=== PATIENT | female | born 1995 | race Caucasian/White ===

== ENCOUNTER 2016-03-26 07:36 | Emergency (ER) | payer OTHER ==
[2016-03-26 07:57] VITALS: TEMP 97.6; O2SAT 98
--- NOTE | 2016-03-26 08:10 | ED.PDOC ---
History of Present Illness - General Chief Complaint: Respiratory Problem Stated Complaint: sore throat Time Seen by Provider: 03/26/16 08:01 Source: patient Exam Limitations: no limitations - History of Present Illness Initial Comments: Patient presents with several days of a sore throat and subjective fever. She also has had a cough productive of green sputum. She went to a clinic yesterday and got azithromycin. She has taken two tablets. She says that her sore throat has not gone away , yet. She wants something that works more quickly. No other complaints. Timing/Duration: other - "several days" Severity: moderate Improving Factors: nothing Worsening Factors: other - swallowing Associated Symptoms: cough Allergies/Adverse Reactions: Allergies Promethazine [From Phenergan] Adverse Reaction (Verified 03/26/16 07:48) Other Skin reaction following IM injection Home Medications: Ambulatory Orders Acetaminophen [Tylenol] 1 mg PO PRN 08/14/13 Vit W/ Ferrous Fumara [Pnv Plus Multivi] 1 tab PO DAILY diphenhydrAMINE HCL [Benadryl] 25 mg PO PRN 08/14/13 HYDROcodone 5MG/APAP 325MG [[place] 5/325] 1 ea PO Q8H #8 tab 09/19/13 Ibuprofen [Motrin Tab] 600 mg PO Q8H #20 tab 09/19/13 Vit W/ Ferrous Fumara [Vitafol-Ob] 1 tab PO DAILY #100 tab 09/19/13 Naproxen [Naprosyn] 500 mg PO BID PRN #30 tab 11/20/15 Review of Systems - Review of Systems Constitutional: States: see HPI EENTM: States: see HPI Respiratory: States: see HPI Cardiology: States: no symptoms reported Gastrointestinal/Abdominal: States: no symptoms reported Genitourinary: States: no symptoms reported Musculoskeletal: States: no symptoms reported Skin: States: no symptoms reported Neurological: States: no symptoms reported Endocrine: States: no symptoms reported Hematologic/Lymphatic: States: no symptoms reported Past Medical History (General) - Patient Medical History Hx Hypertension: No Hx Diabetes: No Hx Renal Disease: No Hx Cancer: No Hx Hepatitis C: No Hx MRSA: No Surgical History: other - Vaccination History Hx Tetanus, Diphtheria Vaccination: No Hx Influenza Vaccination: No Hx Pneumococcal Vaccination: No - Social History Hx Tobacco Use: Yes Hx Substance Use: No - Female History Hx Last Menstrual Period: 01/14/13 Patient : No Expected Date of Delivery:: 10/21/13 Family Medical History - Family History Maternal Grandparents Hx Family Cancer: Yes Mother Hx Family;Other: does not wish to answer questions Physical Exam - Physical Exam General Appearance: Alert Eye Exam: bilateral normal Ears, Nose, Throat: pharyngeal erythema, tonsillar exudate Neck: non-tender, lymphadenopathy (R), lymphadenopathy (L) Respiratory: other - expiratory wheezes on left upper lobe Cardiovascular/Chest: regular rate, rhythm Gastrointestinal/Abdominal: normal bowel sounds, non tender, soft Extremity: normal inspection Progress - Progress Progress: 03/26/16 08:28 Rapid strep positive. Patient received Bicillin LA 1.2 million units IM x one Departure - Departure Clinical Impression: Streptococcal pharyngitis Disposition: Discharge to Home or Self Care Condition: Good Departure Forms: ED Discharge - Pt. Copy, Patient Portal Self Enrollment Activity: increase activity as tolerated Home Medications: Ambulatory Orders Acetaminophen [Tylenol] 1 mg PO PRN 08/14/13 Vit W/ Ferrous Fumara [Pnv Plus Multivi] 1 tab PO DAILY diphenhydrAMINE HCL [Benadryl] 25 mg PO PRN 08/14/13 HYDROcodone 5MG/APAP 325MG [[place] 5/325] 1 ea PO Q8H #8 tab 09/19/13 Ibuprofen [Motrin Tab] 600 mg PO Q8H #20 tab 09/19/13 Vit W/ Ferrous Fumara [Vitafol-Ob] 1 tab PO DAILY #100 tab 09/19/13 Naproxen [Naprosyn] 500 mg PO BID PRN #30 tab 11/20/15 Additional Instructions: Increase fluids. May take over the counter cough and cold medications as directed. Tylenol for pain or fever control.
[2016-03-26] MEDS: PENICILLIN BENZATHINE 1.2 MU 1.2 MU/2 ML SYG IM ONE (08:49)
[2016-03-26 09:08] VITALS: BP 122/74
== END 2016-03-26 09:08 | disposition home or self-care (01) ==
LOC: ER 07:36
DX: J02.0 Streptococcal pharyngitis (principal); Z87.891 Personal history of nicotine dependence; Z88.8 Allergy status to other drugs, medicaments and biological substances; Z79.899 Other long term (current) drug therapy
CPT/HCPCS: 86403; 87502; 87651; J0561

== ENCOUNTER 2016-04-26 11:25 | Emergency (ER) | payer OTHER ==
[2016-04-26 11:49] VITALS: BP 137/75; TEMP 97.4; O2SAT 99
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
--- NOTE | 2016-04-26 12:55 | CT ---
PROCEDURE: Head HISTORY: Blacked out/denies fall Indication: Syncopal Comparison: None Technique: CT of the head was done without intravenous contrast was done in the orthogonal planes. FINDINGS: There is no intracranial hemorrhage, midline shift mass effect or acute focal infarct. If clinical concern exists regarding an acute ischemic/vascular pathology being responsible for patient's symptomatology, an MRI of the brain is more sensitive than the current study, in ruling out such a possibility. There is good oneill/white matter differentiation. The ventricular system is normal. The mastoid air cells are unremarkable . The paranasal sinuses are unremarkable . There is no visualization of acute fractures involving the calvarium or the skull base. IMPRESSION: There is no acute intracranial abnormality. Electronically signed by: Dylan Vazquez MD 04/26/2016 12:55 PM CDT
== END 2016-04-26 12:47 | disposition left against medical advice (07) ==
LOC: ER 11:25
DX: R56.9 Unspecified convulsions (principal); Z87.891 Personal history of nicotine dependence; Z88.8 Allergy status to other drugs, medicaments and biological substances

== ENCOUNTER 2017-02-09 16:01 | Emergency (ER) | payer OTHER | END 2017-02-09 16:49 | disposition left against medical advice (07) | LOC: ER 16:01 | DX: Z53.21 Procedure and treatment not carried out due to patient leaving prior to being seen by health care provider (principal) ==

== ENCOUNTER 2017-03-22 20:49 | Emergency (ER) | payer SELFPAY ==
[2017-03-22] MEDS ORDERED: LACTATED RINGERS 1,000 ML IVS ONE (21:12)
[2017-03-22] MEDS ORDERED: PIPERACILLIN/TAZOBACTAM 2.25 GM in SODIUM CHLORIDE 0.9% 50ML 50 ML IVPB ONE (21:12)
[2017-03-22] MEDS ORDERED: ONDANSETRON INJ 4 MG/2 ML VIAL IV ONE (21:59)
--- NOTE | 2017-03-22 22:04 | ED.PDOC ---
History of Present Illness - General Chief Complaint: Drug or Alcohol Abuse Stated Complaint: etoh intoxication Time Seen by Provider: 03/22/17 21:11 Source: family - sister Exam Limitations: no limitations - History of Present Illness Initial Comments: Zaina Sierra 21 y/o female brought by sister with intractable vomiting tonight sister stated that she drank alcoholic beverages tonight unknown amount.Also stated she will undergo GI/Gynecologic evluation this week Timing/Duration: 1-3 hours Severity: moderate Improving Factors: nothing Worsening Factors: other - see hpi Associated Symptoms: other - see hpi Allergies/Adverse Reactions: Allergies Promethazine [From Phenergan] Adverse Reaction (Verified 04/26/16 11:37) Other Skin reaction following IM injection Home Medications: Ambulatory Orders Albuterol Inhaler [Ventolin Hfa Inhaler] 2 puff INH Q4HR PRN #1 inh 02/11/17 Ibuprofen 800 mg PO Q8HR PRN #30 tab 02/11/17 Ondansetron [Zofran Odt] 8 mg PO TID PRN #20 tab 02/11/17 Spacer/Aerosol-Holding Chamber [Aerochamber Plus] 1 mis INH DAILY #1 02/11/17 Review of Systems - Review of Systems Unable to Obtain Due To: condition, clinical condition - patient continue to vomit and looks intoxicated Past Medical History (General) - Patient Medical History Hx Stroke: No Hx Congestive Heart Failure: No Hx Hypertension: No Hx Diabetes: No Hx Renal Disease: No Hx Cancer: No Hx Hepatitis C: No Hx MRSA: No Surgical History: no surgical history - Vaccination History Hx Tetanus, Diphtheria Vaccination: No Hx Influenza Vaccination: No Hx Pneumococcal Vaccination: No - Social History Hx Tobacco Use: Yes Hx Substance Use: No - Female History Patient is a Female of Child Bearing Age (10 -59 yrs old): Yes Patient : No Family Medical History - Family History Maternal Grandparents Living Status: Hx Family Cancer: Yes Mother Hx Family;Other: does not wish to answer questions Physical Exam - Physical Exam General Appearance: Other - vomiting Eye Exam: bilateral normal - PERRL Neck: supple, normal inspection Respiratory: lungs clear, normal breath sounds Cardiovascular/Chest: normal peripheral pulses, regular rate, rhythm, no murmur Peripheral Pulses: radial,right: 2+, radial,left: 2+ Gastrointestinal/Abdominal: soft, no organomegaly Back Exam: no CVA tenderness, no vertebral tenderness Extremity: no pedal edema Neurologic: other - intoxicated Skin Exam: normal color, warm/dry Progress - Progress Progress: 03/22/17 22:07 Vital Signs 03/22/17 21:05 Temperature 97.5 F L Pulse Rate [ 120 H Right] Respiratory 20 Rate Blood Pressure 150/52 [Right Arm] O2 Sat by Pulse 99 Oximetry 03/22/17 23:49 Patient more alert,talking to sisters,Discuss test results with her elevated alcohol level stated she just got upset today after going for checkup and test showing that they were working her up for possible gynecologic and GI malignancy .Had scan of her abdomen and scheduled to have egd/colonoscopy and gynecologic evaluation this coming 03/25/2017.She also stated numerous family members had GI and gynecologic malignancy and some from it.She no longer has vomiting stating ready to go home. - Results/Orders Results/Orders: 03/22/17 21:12 Catheter:Straight .ONCE 03/22/17 22:42 Multiple Vitamin Inj [MVI Injectable] 10 ml Sodium Chloride 0.9% 1000ML [Ns 1000 ml] 1,000 ml IVPB ONCE Laboratory Results - last 24 hr 03/22/17 03/22/17 03/22/17 21:00 21:00 21:00 WBC 9.5 RBC 4.37 Hgb 14.2 Hct 41.6 MCV 95.0 MCH 32.4 H MCHC 34.1 RDW 12.9 Plt Count 208 MPV 8.2 Absolute Neuts (auto) 5.20 Absolute Lymphs (auto) 3.30 Absolute Monos (auto) 0.80 Absolute Eos (auto) 0.10 Absolute Basos (auto) 0.10 Neutrophils % 54.9 Lymphocytes % 34.7 Monocytes % 8.3 Eosinophils % 1.5 Basophils % 0.6 Sodium 141 Potassium 3.3 L Chloride 104 Carbon Dioxide 25 Anion Gap 15.3 BUN < 5 L Creatinine 0.80 BUN/Creatinine Ratio 6.2 L Random Glucose 104 Serum Osmolality 278.8 Calcium 9.4 Total Bilirubin 0.5 AST 18 ALT 12 Alkaline Phosphatase 63 Serum Total Protein 7.7 Albumin 4.3 Globulin 3.4 Albumin/Globulin Ratio 1.3 Lipase Serum HCG, Qual Salicylates < 4.0 Urine Opiates Screen Acetaminophen < 10.0 L Urine Barbiturates Ur Phencyclidine Scrn U Amphetamin/Meth Scrn U Benzodiazepines Scrn U Cocaine Metab Screen U Cannabinoids Screen Ethyl Alcohol 119.10 H* 03/22/17 03/22/17 03/22/17 21:00 21:00 22:25 WBC RBC Hgb Hct MCV MCH MCHC RDW Plt Count MPV Absolute Neuts (auto) Absolute Lymphs (auto) Absolute Monos (auto) Absolute Eos (auto) Absolute Basos (auto) Neutrophils % Lymphocytes % Monocytes % Eosinophils % Basophils % Sodium Potassium Chloride Carbon Dioxide Anion Gap BUN Creatinine BUN/Creatinine Ratio Random Glucose Serum Osmolality Calcium Total Bilirubin AST ALT Alkaline Phosphatase Serum Total Protein Albumin Globulin Albumin/Globulin Ratio Lipase 30 Serum HCG, Qual Negative Salicylates Urine Opiates Screen Negative Acetaminophen Urine Barbiturates Negative Ur Phencyclidine Scrn Negative U Amphetamin/Meth Scrn Negative U Benzodiazepines Scrn Negative U Cocaine Metab Screen Negative U Cannabinoids Screen Negative Ethyl Alcohol Departure - Departure Clinical Impression: Vomiting Qualifiers: Vomiting type: unspecified Vomiting Intractability: non-intractable Nausea presence: without nausea Qualified Code(s): R11.11 - Vomiting without nausea Alcohol intoxication Qualifiers: Complication of substance-induced condition: uncomplicated Qualified Code(s): F10.920 - Alcohol use, unspecified with intoxication, uncomplicated Time of Disposition: 23:56 Disposition: Discharge to Home or Self Care Departure Forms: ED Discharge - Pt. Copy, Patient Portal Self Enrollment Instructions: Blood Alcohol Level, Alcohol Abuse and Alcoholism, DI for Alcohol Abuse and Alcoholism Referrals: ELIAN VILLAGRAN IV, STENCIL PRINTER [Primary Care Provider] - 1-2 Weeks Home Medications: Ambulatory Orders Albuterol Inhaler [Ventolin Hfa Inhaler] 2 puff INH Q4HR PRN #1 inh 02/11/17 Ibuprofen 800 mg PO Q8HR PRN #30 tab 02/11/17 Ondansetron [Zofran Odt] 8 mg PO TID PRN #20 tab 02/11/17 Spacer/Aerosol-Holding Chamber [Aerochamber Plus] 1 mis INH DAILY #1 02/11/17 Additional Instructions: Keep appointment with GI and Civil Engineering Director as scheduled;Return to emergency room as needed
[2017-03-22] MEDS ORDERED: PANTOPRAZOLE SODIUM IV 40 MG VIAL IV ONE (22:06)
[2017-03-22] MEDS ORDERED: SODIUM CHLORIDE 0.9% 1000ML 1,000 ML IVS ONE (22:20)
[2017-03-22] MEDS ORDERED: SODIUM CHLORIDE 0.9% 1000ML 1,000 ML ONE ×2 (22:22→23:02)
[2017-03-22] MEDS ORDERED: MULTIPLE VITAMIN INJ 10 ML in SODIUM CHLORIDE 0.9% 1000ML 1,000 ML IVPB ONE (22:42)
[2017-03-22] MEDS ORDERED: MULTIPLE VITAMIN INJ 10 ML, THIAMINE HCL INJ 100 MG in SODIUM CHLORIDE 0.9% 1000ML 1,00... IVS ONE (23:00)
[2017-03-22] MEDS ORDERED: MULTIPLE VITAMIN 10 ML VIAL ONE (23:02)
[2017-03-23 00:13] VITALS: TEMP 98.1
[2017-03-23 00:16] VITALS: O2SAT 100
[2017-03-23 00:35] VITALS: BP 118/67
== END 2017-03-23 00:35 | disposition home or self-care (01) ==
LOC: ER 20:49
DX: F10.129 Alcohol abuse with intoxication, unspecified (principal); Y90.5 Blood alcohol level of 100-119 mg/100 ml; R11.11 Vomiting without nausea
CPT/HCPCS: 36415; 80053; 80307; 80320; 80329; 83690; 84703; 85025; J2405; J7030; J7120

== ENCOUNTER 2017-08-11 11:51 | Emergency (ER) | payer SELFPAY ==
[2017-08-11 12:14] VITALS: TEMP 97.9
[2017-08-11] MEDS ORDERED: predniSONE 20 MG TAB PO ONE (12:48)
[2017-08-11] MEDS ORDERED: SULFA/TRIMETH 800/160 (DS) TAB 1 EA TAB PO ONE (12:48)
--- NOTE | 2017-08-11 12:51 | ED.PDOC ---
History of Present Illness - General Chief Complaint: Skin/Abrasion/Tear Stated Complaint: rash Time Seen by Provider: 08/11/17 12:48 Source: patient Exam Limitations: no limitations - History of Present Illness Initial Comments: severe poison oak exposeure and rash to buttock, labia, innrer thighs, neck and forearms. 2 days duration. no anaphalaxis. has already washed the leatha well. Severity: severe Improving Factors: nothing Worsening Factors: nothing Associated Symptoms: denies symptoms Allergies/Adverse Reactions: Allergies Promethazine [From Phenergan] Adverse Reaction (Verified 08/11/17 12:14) Other Skin reaction following IM injection Home Medications: Ambulatory Orders Albuterol Inhaler [Ventolin Hfa Inhaler] 2 puff INH Q4HR PRN #1 inh 02/11/17 Ibuprofen 800 mg PO Q8HR PRN #30 tab 02/11/17 Ondansetron [Zofran Odt] 8 mg PO TID PRN #20 tab 02/11/17 Spacer/Aerosol-Holding Chamber [Aerochamber Plus] 1 mis INH DAILY #1 02/11/17 Hydroxyzine HCl 10 mg PO Q6HR PRN #40 tab 08/11/17 Sulfa/Trimeth 800/160 (Ds) Tab [Bactrim DS Tab] 1 ea PO DAILY #7 tab 08/11/17 predniSONE [Prednisone] 40 mg PO DAILY #20 tab 08/11/17 Review of Systems - Review of Systems Constitutional: States: no symptoms reported EENTM: States: no symptoms reported Respiratory: States: no symptoms reported Cardiology: States: no symptoms reported Gastrointestinal/Abdominal: States: no symptoms reported Genitourinary: States: no symptoms reported Musculoskeletal: States: no symptoms reported Skin: States: see HPI Neurological: States: no symptoms reported Endocrine: States: no symptoms reported All other Systems: No Change from Baseline Past Medical History (General) - Patient Medical History Hx Stroke: No Hx Congestive Heart Failure: No Hx Hypertension: No Hx Diabetes: No Hx Renal Disease: No Hx Cancer: No Hx Hepatitis C: No Hx MRSA: No Surgical History: other - Vaccination History Hx Tetanus, Diphtheria Vaccination: No Hx Influenza Vaccination: No Hx Pneumococcal Vaccination: No - Social History Hx Tobacco Use: Yes Hx Alcohol Use: No Hx Substance Use: No - Female History Hx Last Menstrual Period: 01/14/13 Patient : No Expected Date of Delivery:: 10/21/13 - Triage Comment ED Triage Comment: LMP yesterday Family Medical History - Family History Maternal Grandparents Living Status: Hx Family Cancer: Yes Mother Hx Family;Other: does not wish to answer questions Physical Exam - Physical Exam General Appearance: Alert, No apparent distress Eye Exam: bilateral normal Ears, Nose, Throat: hearing grossly normal, normal ENT inspection, normal pharynx Neck: full range of motion, supple Respiratory: lungs clear, normal breath sounds, no respiratory distress, no accessory muscle use Cardiovascular/Chest: normal peripheral pulses, regular rate, rhythm, no edema Peripheral Pulses: radial,right: 2+, radial,left: 2+, dorsalis pedis,right: 2+, dorsalis pedis,left: 2+ Gastrointestinal/Abdominal: non tender, soft Rectal Exam: deferred Back Exam: normal inspection, no CVA tenderness, no vertebral tenderness Extremity: normal range of motion, no pedal edema, no calf tenderness, normal capillary refill 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 bactrim daily for 7 days. prednisone 40 daily for 10 days. and zyrtec 2 times daily for 2 weeks. over the counter hydrocortisone with lidocaine 3 times daily to affected areas except in body creases. symptoms will last at least 2 weeks. er warnings. follow up with pcp before the weekend for reeval. Departure - Departure Clinical Impression: Contact dermatitis due to poison estefany Disposition: Discharge to Home or Self Care Condition: Fair Departure Forms: ED Discharge - Pt. Copy, Patient Portal Self Enrollment Instructions: Poison [place]ef[place], Poison [place], Poison [place] ([place]) Diet: regular diet Activity: increase activity as tolerated Prescriptions: Hydroxyzine HCl 10 mg PO Q6HR PRN #40 tab PRN Reason: itching predniSONE [Prednisone] 40 mg PO DAILY #20 tab Sulfa/Trimeth 800/160 (Ds) Tab [Bactrim DS Tab] 1 ea PO DAILY #7 tab Home Medications: Ambulatory Orders Albuterol Inhaler [Ventolin Hfa Inhaler] 2 puff INH Q4HR PRN #1 inh 02/11/17 Ibuprofen 800 mg PO Q8HR PRN #30 tab 02/11/17 Ondansetron [Zofran Odt] 8 mg PO TID PRN #20 tab 02/11/17 Spacer/Aerosol-Holding Chamber [Aerochamber Plus] 1 mis INH DAILY #1 02/11/17 Hydroxyzine HCl 10 mg PO Q6HR PRN #40 tab 08/11/17 Sulfa/Trimeth 800/160 (Ds) Tab [Bactrim DS Tab] 1 ea PO DAILY #7 tab 08/11/17 predniSONE [Prednisone] 40 mg PO DAILY #20 tab 08/11/17 Additional Instructions: the patient presents with significant poison oak exposure. bactrim daily for 7 days. prednisone 40 daily for 10 days. and zyrtec 2 times daily for 2 weeks. over the counter hydrocortisone with lidocaine 3 times daily to affected areas except in body creases. symptoms will last at least 2 weeks. er warnings. follow up with pcp before the weekend for reeval.
[2017-08-11] MEDS ORDERED: diphenhydrAMINE HCL 25 MG CAP PO ONE (13:01)
[2017-08-11 13:24] VITALS: BP 113/50; O2SAT 100
== END 2017-08-11 13:21 | disposition home or self-care (01) ==
LOC: ER 11:51
DX: L23.7 Allergic contact dermatitis due to plants, except food (principal); Z87.891 Personal history of nicotine dependence
CPT/HCPCS: J7512; Q0163

== ENCOUNTER 2017-10-18 22:31 | Emergency (ER) | payer SELFPAY ==
[2017-10-18 22:51] VITALS: BP 127/62; TEMP 99.7; O2SAT 98
--- NOTE | 2017-10-18 23:08 | RAD ---
EXAM DESCRIPTION: Hand,Right 3 Views CLINICAL HISTORY: 22 years Female, hurtulnar hand COMPARISON: None. FINDINGS: Osseous structures are unremarkable. There is no acute fracture. No dislocation. Surrounding soft tissues are unremarkable. IMPRESSION: No acute findings. Electronically signed by: Silviano Acosta MD 10/18/2017 11:07 PM CDT
--- NOTE | 2017-10-18 23:22 | ED.PDOC ---
History of Present Illness - General Chief Complaint: Upper Extremity Injury Stated Complaint: right hand injury Time Seen by Provider: 10/18/17 22:50 Source: patient Exam Limitations: no limitations - History of Present Illness Initial Comments: the patient is a 22-year-old female presenting to the emergency room secondary to pain in her right hand after accidentally having had a 2 x 6 with it. She has pain diffusely over the ulnar aspect of the hand. No gross deformity. She is neurovascularly intact. Range of motion appears preserved. Timing/Duration: momentarily Severity: moderate Improving Factors: nothing Worsening Factors: movement Associated Symptoms: denies symptoms Allergies/Adverse Reactions: Allergies Promethazine [From Phenergan] Adverse Reaction (Verified 10/18/17 22:51) Other Skin reaction following IM injection Home Medications: Ambulatory Orders Lorazepam [Ativan] 1 mg PO BID 10/18/17 Review of Systems - Review of Systems Constitutional: States: no symptoms reported EENTM: States: no symptoms reported Respiratory: States: no symptoms reported Cardiology: States: no symptoms reported Gastrointestinal/Abdominal: States: no symptoms reported Genitourinary: States: no symptoms reported Musculoskeletal: States: see HPI Skin: States: no symptoms reported Neurological: States: no symptoms reported Endocrine: States: no symptoms reported All other Systems: No Change from Baseline Past Medical History (General) - Patient Medical History Hx Seizures: No Hx Stroke: No Hx Dementia: No Hx Asthma: No Hx of COPD: No Hx Cardiac Disorders: No Hx Congestive Heart Failure: No Hx Pacemaker: No Hx Hypertension: No Hx Thyroid Disease: No Hx Diabetes: No Hx Gastroesophageal Reflux: No Hx Renal Disease: No Hx Cancer: Yes - ovarian Hx of HIV: No Hx Hepatitis C: No Hx MRSA: No Surgical History: other - Vaccination History Hx Tetanus, Diphtheria Vaccination: No Hx Influenza Vaccination: No Hx Pneumococcal Vaccination: No - Social History Hx Tobacco Use: Yes Hx Alcohol Use: Yes - occasional Hx Substance Use: No - Female History Hx Last Menstrual Period: 01/14/13 Patient : No Expected Date of Delivery:: 10/21/13 Family Medical History - Family History Maternal Grandparents Living Status: Hx Family Cancer: Yes Father Hx Family Hypertension: Yes Hx Family Diabetes: Yes Mother Hx Family;Other: does not wish to answer questions Physical Exam - Physical Exam General Appearance: Alert, Anxious, No apparent distress Eye Exam: bilateral normal Ears, Nose, Throat: hearing grossly normal Neck: full range of motion Respiratory: no respiratory distress, no accessory muscle use Cardiovascular/Chest: normal peripheral pulses, no edema, other - regular rate Peripheral Pulses: radial,right: 2+, radial,left: 2+ Rectal Exam: deferred Extremity: normal range of motion, no pedal edema, normal capillary refill, other - see history of present illness Neurologic: pumper hand II-XII nml as tested, no motor/sensory deficits, alert, normal mood/affect, oriented x 3 Skin Exam: normal color Comments: Vital Signs - 24 hr 10/18/17 22:46 Temperature 99.7 F H Pulse Rate [ 108 H monitor] Respiratory 16 Rate Blood Pressure 127/62 [Left Arm] O2 Sat by Pulse 98 Oximetry Progress - Progress Progress: 10/18/17 23:20 the patient is a 22-year-old female presented to emergency room after blunt trauma to her right hand. X-ray reveals no evidence of any fracture or dislocation. This is likely a mild strain or sprain from the impact. She needs to do range of motion exercises. [id number] anti-inflammatories can help reduce discomfort some. She will likely have pain for couple of weeks. Immobilization is not necessarily recommended. ER warnings are given for any significant worsening. Departure - Departure Clinical Impression: Sprain and strain of hand Disposition: Discharge to Home or Self Care Condition: Fair Departure Forms: ED Discharge - Pt. Copy, Patient Portal Self Enrollment Instructions: DI for Hand Injury Diet: regular diet Activity: increase activity as tolerated Home Medications: Ambulatory Orders Lorazepam [Ativan] 1 mg PO BID 10/18/17 Additional Instructions: the patient is a 22-year-old female presented to emergency room after blunt trauma to her right hand. X-ray reveals no evidence of any fracture or dislocation. This is likely a mild strain or sprain from the impact. She needs to do range of motion exercises. [id number] anti-inflammatories can help reduce discomfort some. She will likely have pain for couple of weeks. Immobilization is not necessarily recommended. ER warnings are given for any significant worsening.
[2017-10-18] MEDS: ACETAMINOPHEN-CAFF-BUTALBITAL 1 EA TAB PO ONE (23:25)
== END 2017-10-18 23:33 | disposition home or self-care (01) ==
LOC: ER 22:31
DX: S63.91XA Sprain of unspecified part of right wrist and hand, initial encounter (principal); Z88.8 Allergy status to other drugs, medicaments and biological substances; Z85.43 Personal history of malignant neoplasm of ovary; Z87.891 Personal history of nicotine dependence; W22.8XXA Striking against or struck by other objects, initial encounter; Y92.9 Unspecified place or not applicable

== ENCOUNTER 2017-10-24 22:09 | Emergency (ER) | payer SELFPAY | END 2017-10-24 22:29 | disposition left against medical advice (07) | LOC: ER 22:09 | DX: R21 Rash and other nonspecific skin eruption (principal); Z53.21 Procedure and treatment not carried out due to patient leaving prior to being seen by health care provider ==

== ENCOUNTER 2017-10-26 20:42 | Emergency (ER) | payer SELFPAY ==
[2017-10-26] MEDS ORDERED: PERMETHRIN 5% 60 GM TUBE TOP ONE (21:12)
--- NOTE | 2017-10-26 21:16 | ED.PDOC ---
History of Present Illness - General Chief Complaint: Skin/Abrasion/Tear Stated Complaint: rash Time Seen by Provider: 10/26/17 21:10 Source: patient Exam Limitations: no limitations - History of Present Illness Initial Comments: patient comes in today with scabies. Patient states a week ago started having the rash and just has worsens with severe itching and bumps that seems to be spreading throughout her body with worsening on her right arm. Patient states she tried and bleach bath at home but has not had much improvement. No fever, chills, cough or cold symptoms. Her has the symptoms as well and patient's children have started getting the bumps Timing/Duration: week, getting worse Severity: moderate Location: torso, extremities Improving Factors: nothing Worsening Factors: nothing Associated Symptoms: itching Allergies/Adverse Reactions: Allergies Promethazine [From Phenergan] Adverse Reaction (Verified 10/18/17 22:51) Other Skin reaction following IM injection Home Medications: Ambulatory Orders Lorazepam [Ativan] 1 mg PO BID 10/18/17 Permethrin 5% [Elimite] 1 b TOP ONCE 1 Days #1 tube 10/26/17 Review of Systems - Review of Systems Constitutional: States: no symptoms reported. Denies: chills, fever EENTM: States: no symptoms reported Respiratory: States: no symptoms reported. Denies: cough, short of breath, wheezing Cardiology: States: no symptoms reported Gastrointestinal/Abdominal: States: no symptoms reported Genitourinary: States: no symptoms reported Musculoskeletal: States: no symptoms reported Skin: States: see HPI Past Medical History (General) - Patient Medical History Hx Seizures: No Hx Stroke: No Hx Dementia: No Hx Asthma: Yes Hx of COPD: No Hx Cardiac Disorders: No Hx Congestive Heart Failure: No Hx Pacemaker: No Hx Hypertension: No Hx Thyroid Disease: No Hx Diabetes: No Hx Gastroesophageal Reflux: No Hx Renal Disease: No Hx Cancer: Yes - ovarian Hx of HIV: No Hx Hepatitis C: No Hx MRSA: No - Vaccination History Hx Tetanus, Diphtheria Vaccination: No Hx Influenza Vaccination: No Hx Pneumococcal Vaccination: No Immunizations Up to Date: No - Social History Hx Tobacco Use: Yes Hx Alcohol Use: Yes - occasional Hx Substance Use: No - Female History Hx Last Menstrual Period: 01/14/13 Patient : No Expected Date of Delivery:: 10/21/13 Family Medical History - Family History Maternal Grandparents Living Status: Hx Family Cancer: Yes Father Hx Family Hypertension: Yes Hx Family Diabetes: Yes Mother Hx Family;Other: does not wish to answer questions Physical Exam - Physical Exam General Appearance: Alert, No apparent distress Cardiovascular/Chest: normal peripheral pulses, regular rate, rhythm Respiratory: lungs clear Skin Exam: other - nonblanching groupings of papules with burrows excoriations without scaling or erythema on her hand, upper arm, low back, and bilateral lower extremities Departure - Departure Clinical Impression: Scabies Disposition: Discharge to Home or Self Care Departure Forms: ED Discharge - Pt. Copy, Patient Portal Self Enrollment Referrals: Tala Abrams NP [Primary Care Provider] - 1-2 Weeks Prescriptions: Permethrin 5% [Elimite] 1 b TOP ONCE 1 Days #1 tube Home Medications: Ambulatory Orders Lorazepam [Ativan] 1 mg PO BID 10/18/17 Permethrin 5% [Elimite] 1 b TOP ONCE 1 Days #1 tube 10/26/17 Additional Instructions: would make sure family treated as well. Can use hydrocortisone cream to area after treatment until itching and bumps resolve.
[2017-10-26 22:09] VITALS: BP 108/69; TEMP 98.1; O2SAT 97
== END 2017-10-26 21:40 | disposition home or self-care (01) ==
LOC: ER 20:42
DX: B86 Scabies (principal); J45.909 Unspecified asthma, uncomplicated; Z88.8 Allergy status to other drugs, medicaments and biological substances; Z87.891 Personal history of nicotine dependence; Z85.43 Personal history of malignant neoplasm of ovary

== ENCOUNTER 2017-12-24 17:32 | Emergency (ER) | payer SELFPAY ==
[2017-12-24 17:45] VITALS: BP 147/120; TEMP 98; O2SAT 97
[2017-12-24] MEDS ORDERED: ONDANSETRON ODT 8 MG TAB SL ONE (17:58)
[2017-12-24] MEDS ORDERED: ALUM & MAG HYDROX-SIMETHICONE 30 ML, LIDOCAINE VISCOUS 2% 15 ML PO ONE ×2 (17:58)
[2017-12-24] MEDS ORDERED: FAMOTIDINE 20 MG TAB PO ONE (17:58)
[2017-12-24] MEDS ORDERED: ALUM & MAG HYDROX-SIMETHICONE 30 ML UD ONE (18:03)
[2017-12-24] MEDS ORDERED: LIDOCAINE HCL 2% (MOUTH-THROAT) 15 ML UD ONE (18:03)
--- NOTE | 2017-12-24 18:19 | ED.PDOC ---
History of Present Illness - General Chief Complaint: Chest Pain/VT Stated Complaint: chest pain Time Seen by Provider: 12/24/17 17:58 Source: patient, family Exam Limitations: no limitations - History of Present Illness Initial Comments: the patient is a 22-year-old female presenting to the emergency room with her significant other secondary to reports of severe chest and abdominal pain that has been off and on for the last month. This last episode was lasted about 3 or 4 hours. She has had a history of throwing up frequently. She denies any heart problems. She does have a history of stomach ulcers. The patient is extremely rude and belligerent and continues to curse me out. It is highly likely that this patient is intoxicated. She denies this. She is alert and oriented. Timing/Duration: unsure Severity: severe Improving Factors: nothing Associated Symptoms: chest pain, loss of appetite, nausea/vomiting Allergies/Adverse Reactions: Allergies Promethazine [From Phenergan] Adverse Reaction (Verified 10/18/17 22:51) Other Skin reaction following IM injection Home Medications: Ambulatory Orders Lorazepam [Ativan] 1 mg PO BID 10/18/17 Azithromycin [Zithromax Z-Everett] 250 mg PO DAILY #6 tab 10/26/17 Permethrin 5% [Elimite] 1 b TOP ONCE 1 Days #1 tube 10/26/17 Prednisone [Deltasone] 20 mg PO DAILY #5 tab 10/26/17 Review of Systems - Review of Systems Constitutional: States: no symptoms reported EENTM: States: no symptoms reported Respiratory: States: short of breath Cardiology: States: chest pain Gastrointestinal/Abdominal: States: abdominal pain, vomiting Genitourinary: States: no symptoms reported Musculoskeletal: States: no symptoms reported Skin: States: no symptoms reported Neurological: States: anxiety All other Systems: No Change from Baseline Past Medical History (General) - Patient Medical History Hx Seizures: No Hx Stroke: No Hx Dementia: No Hx Asthma: No Hx of COPD: No Hx Cardiac Disorders: No Hx Congestive Heart Failure: No Hx Pacemaker: No Hx Hypertension: No Hx Thyroid Disease: No Hx Diabetes: No Hx Gastroesophageal Reflux: No Hx Renal Disease: No Hx Cancer: Yes - ovarian Hx of HIV: No Hx Hepatitis C: No Hx MRSA: No - Vaccination History Hx Tetanus, Diphtheria Vaccination: No Hx Influenza Vaccination: No Hx Pneumococcal Vaccination: No - Social History Hx Tobacco Use: Yes Hx Alcohol Use: Yes - occasional Hx Substance Use: No - Female History Patient is a Female of Child Bearing Age (10 -59 yrs old): Yes Hx Last Menstrual Period: 01/14/13 Patient : No Expected Date of Delivery:: 10/21/13 Family Medical History - Family History Maternal Grandparents Living Status: Hx Family Cancer: Yes Father Hx Family Hypertension: Yes Hx Family Diabetes: Yes Mother Hx Family;Other: does not wish to answer questions Physical Exam - Physical Exam General Appearance: Alert, Anxious, Other - highly agitated Eye Exam: bilateral normal Ears, Nose, Throat: hearing grossly normal, normal pharynx Neck: full range of motion, supple Respiratory: lungs clear, normal breath sounds, no respiratory distress, no accessory muscle use Cardiovascular/Chest: normal peripheral pulses, no edema, other - sinus tachycardia Peripheral Pulses: radial,right: 2+, radial,left: 2+, dorsalis pedis,right: 2+, dorsalis pedis,left: 2+ Gastrointestinal/Abdominal: other - epigastric tenderness to palpation Rectal Exam: deferred Back Exam: no CVA tenderness, no vertebral tenderness Extremity: non-tender, normal inspection, no pedal edema, normal capillary refill 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 - Results/Orders Results/Orders: EKG shows sinus tachycardia [address] segment depression or ST segment elevation or T-wave changes consistent with acute ischemia. Normal axis. Mild LVH. Normal QT interval. Departure - Departure Clinical Impression: Intoxication Chest pain Qualifiers: Chest pain type: unspecified Qualified Code(s): R07.9 - Chest pain, unspecified Vomiting Qualifiers: Vomiting type: unspecified Vomiting Intractability: unspecified Disposition: Left Against Medical Advice Departure Forms: ED Discharge - Pt. Copy, Patient Portal Self Enrollment Referrals: Tala Abrams NP [Primary Care Provider] - 1-2 Weeks Home Medications: Ambulatory Orders Lorazepam [Ativan] 1 mg PO BID 10/18/17 Azithromycin [Zithromax Z-Everett] 250 mg PO DAILY #6 tab 10/26/17 Permethrin 5% [Elimite] 1 b TOP ONCE 1 Days #1 tube 10/26/17 Prednisone [Deltasone] 20 mg PO DAILY #5 tab 10/26/17
== END 2017-12-24 18:18 | disposition left against medical advice (07) ==
LOC: ER 17:32
DX: R07.9 Chest pain, unspecified (principal); R11.10 Vomiting, unspecified; F10.129 Alcohol abuse with intoxication, unspecified; R00.1 Bradycardia, unspecified; Z53.29 Procedure and treatment not carried out because of patient's decision for other reasons; Z79.899 Other long term (current) drug therapy; Z88.8 Allergy status to other drugs, medicaments and biological substances; Z87.11 Personal history of peptic ulcer disease

== ENCOUNTER 2018-04-12 05:07 | Emergency (ER) | payer SELFPAY ==
--- NOTE | 2018-04-12 05:15 | ED.PDOC ---
History of Present Illness - General Chief Complaint: Upper Extremity Injury Stated Complaint: right hand pain Time Seen by Provider: 04/12/18 05:14 Source: patient Exam Limitations: no limitations - History of Present Illness Initial Comments: Zaina Dodd 22 y/o female stated she poked her right hand with a broom stick last week and stated has healed but the last 3 days had worsening sharp pain and swelling on her right hand which goes all the way to her right shoulder.No fever/chills. Occurred: other - see hpi Pain - Upper Extremity: moderate: Hand, right Method of Injury: other - see hpi Improving Factors: rest Worsening Factors: movement Associated Symptoms: pain/swelling Allergies/Adverse Reactions: Allergies Promethazine [From Phenergan] Adverse Reaction (Verified 04/12/18 05:24) Other Skin reaction following IM injection Home Medications: Ambulatory Orders Lorazepam [Ativan] 1 mg PO BID 10/18/17 Review of Systems - Review of Systems Constitutional: States: no symptoms reported EENTM: States: no symptoms reported Respiratory: States: no symptoms reported Cardiology: States: no symptoms reported Gastrointestinal/Abdominal: States: no symptoms reported Genitourinary: States: no symptoms reported Musculoskeletal: States: see HPI All other Systems: Reviewed and Negative, No Change from Baseline Past Medical History (General) - Patient Medical History Hx Seizures: No Hx Stroke: No Hx Dementia: No Hx Asthma: No Hx of COPD: No Hx Cardiac Disorders: No Hx Congestive Heart Failure: No Hx Pacemaker: No Hx Hypertension: No Hx Thyroid Disease: No Hx Diabetes: No Hx Gastroesophageal Reflux: No Hx Renal Disease: No Hx Cancer: Yes - ovarian Hx of HIV: No Hx Hepatitis C: No Hx MRSA: No Hx Other PMH: Yes - bipolar Surgical History: other - lumbar spine,Lap surgery - Vaccination History Hx Tetanus, Diphtheria Vaccination: No Hx Influenza Vaccination: No Hx Pneumococcal Vaccination: No - Social History Hx Tobacco Use: Yes Hx Alcohol Use: Yes - occasional Hx Substance Use: No Hx Physical Abuse: No Hx Emotional Abuse: No - Female History Patient is a Female of Child Bearing Age (10 -59 yrs old): Yes Hx Last Menstrual Period: 04/12/18 Patient : No Family Medical History - Family History Maternal Grandparents Living Status: Hx Family Cancer: Yes Father Hx Family Hypertension: Yes Hx Family Diabetes: Yes Mother Hx Family;Other: does not wish to answer questions Physical Exam - Physical Exam General Appearance: Anxious, No apparent distress Eyes, Ears, Nose, Throat Exam: normal ENT inspection Neck: supple Cardiovascular/Respiratory: regular rate, rhythm, no M/R/G, normal peripheral pulses, normal breath sounds Abdominal Exam: non-tender Back Exam: no CVA tenderness, no vertebral tenderness Shoulder Exam: normal inspection, non-tender, no evidence of injury, normal ROM Elbow/Forearm Exam: normal inspection, non-tender, no evidence of injury, normal ROM Wrist Exam: normal inspection, non-tender, no evidence of injury, normal ROM Hand Exam: infection, limited ROM - pain on extesion of finger, soft tissue tenderness - and localized redness palmar aspect, swelling - right hand Neuro/Tendon: normal sensation, normal motor functions, responds to pain Mental Status: alert, oriented x 3 Skin Exam: normal color, warm/dry Progress - Progress Progress: 04/12/18 06:08 Vital Signs - 8 hr 04/12/18 05:10 Temperature 98.1 F Pulse Rate [ 101 H monitor] Respiratory 20 Rate Blood Pressure 142/103 [Left Arm] O2 Sat by Pulse 98 Oximetry 04/12/18 07:45 D/W Dr. Santiago -Orthopedist he will see patient after his surgery 04/12/18 07:46 Patient wants to leave AMA and go somewhere else but advised to finish Vancomycin IV - Results/Orders Results/Orders: 04/12/18 05:18 DME - Durable Medical Equip .ONCE IV Care:Saline Lock per Protoc QSHIFT Urine Culture Stat 04/12/18 06:18 Vancomycin HCl Inj 1,000 mg Sodium Chloride 0.9% 250Ml [NS 250ml] 250 ml IVPB ONCE Laboratory Results - last 24 hr 04/12/18 04/12/18 04/12/18 05:18 05:18 05:18 WBC RBC Hgb Hct MCV MCH MCHC RDW Plt Count MPV Absolute Neuts (auto) Absolute Lymphs (auto) Absolute Monos (auto) Absolute Eos (auto) Absolute Basos (auto) Neutrophils % Lymphocytes % Monocytes % Eosinophils % Basophils % Sodium Potassium Chloride Carbon Dioxide Anion Gap BUN Creatinine BUN/Creatinine Ratio Random Glucose Serum Osmolality Lactic Acid Calcium Total Bilirubin AST ALT Alkaline Phosphatase Serum Total Protein Albumin Globulin Albumin/Globulin Ratio Urine Color Yellow Urine Appearance Sl cloudy Urine pH 7.5 Ur Specific [place] 1.015 Urine Protein 30 Urine Glucose (UA) Negative Urine Ketones Negative Urine Blood Large H Urine Nitrite Negative Urine Bilirubin Negative Urine Urobilinogen 0.2 Ur Leukocyte Esterase Small H Urine RBC 5-10 H Urine WBC 5-10 H Ur Epithelial Cells 10-20 Urine Bacteria 1+ Urine HCG, Qual Negative Urine Opiates Screen Positive H Urine Barbiturates Negative Ur Phencyclidine Scrn Negative U Amphetamin/Meth Scrn Positive H U Benzodiazepines Scrn Positive H U Cocaine Metab Screen Negative U Cannabinoids Screen Positive H 04/12/18 04/12/18 04/12/18 05:50 05:50 05:50 WBC 7.1 RBC 4.18 L Hgb 13.9 Hct 40.9 MCV 97.8 MCH 33.2 H MCHC 34.0 RDW 13.5 Plt Count 221 MPV 7.4 Absolute Neuts (auto) 4.40 Absolute Lymphs (auto) 1.90 Absolute Monos (auto) 0.60 Absolute Eos (auto) 0.20 Absolute Basos (auto) 0.10 Neutrophils % 61.8 Lymphocytes % 26.3 Monocytes % 9.0 Eosinophils % 2.1 Basophils % 0.8 Sodium 137 Potassium 4.0 Chloride 102 Carbon Dioxide 26 Anion Gap 13.0 BUN 11 Creatinine 0.83 BUN/Creatinine Ratio 13.3 Random Glucose 87 Serum Osmolality 272.6 L Lactic Acid 0.9 Calcium 9.1 Total Bilirubin 0.8 AST 21 ALT 19 Alkaline Phosphatase 71 Serum Total Protein 7.0 Albumin 4.1 Globulin 2.9 Albumin/Globulin Ratio 1.4 Urine Color Urine Appearance Urine pH Ur Specific [place] Urine Protein Urine Glucose (UA) Urine Ketones Urine Blood Urine Nitrite Urine Bilirubin Urine Urobilinogen Ur Leukocyte Esterase Urine RBC Urine WBC Ur Epithelial Cells Urine Bacteria Urine HCG, Qual Urine Opiates Screen Urine Barbiturates Ur Phencyclidine Scrn U Amphetamin/Meth Scrn U Benzodiazepines Scrn U Cocaine Metab Screen U Cannabinoids Screen - EKG/XRAY/CT XRAY: hand - right-soft tissue swelling no foreign body Departure - Departure Clinical Impression: Cellulitis and abscess of hand Time of Disposition: 08:54 Disposition: Left Against Medical Advice Condition: Fair Departure Forms: ED Discharge - Pt. Copy, Patient Portal Self Enrollment Instructions: DI for Arm Pain Referrals: Tala Abrams NP [Primary Care Provider] - 1-2 Weeks Home Medications: Ambulatory Orders Lorazepam [Ativan] 1 mg PO BID 10/18/17
[2018-04-12] MEDS ORDERED: TETANUS,DIPHTHERIA,PERTUSSIS 1 EA SYG IM ONE (05:19)
[2018-04-12 05:24] VITALS: TEMP 98.1; O2SAT 98
--- NOTE | 2018-04-12 06:08 | RAD ---
RIGHT HAND 04/12/2018 CLINICAL HISTORY: Pain and swelling COMPARISON: Right hand 10/18/2017. TECHNIQUE: PA, lateral, and oblique views of the right hand. FINDINGS: There is no acute or healing fracture. No dislocation. Joint spaces are within normal limits. Normal bone mineralization. Mild soft tissue swelling over the dorsal hand and index finger.. No foreign body. No subcutaneous emphysema. IMPRESSION: 1. Right hand soft tissue edema. No acute bony finding. Electronically signed by: Carissa Rivera DO 04/12/2018 6:04 AM [facility]
[2018-04-12] MEDS ORDERED: VANCOMYCIN HCL INJ 1,000 MG in SODIUM CHLORIDE 0.9% 250ML 250 ML IVPB ONE (06:18)
[2018-04-12] MEDS ORDERED: KETOROLAC TROMETHAMINE INJ 30 MG/ML VIAL IV ONE (06:19)
[2018-04-12] MEDS ORDERED: SODIUM CHLORIDE 0.9% 250ML 250 ML ONE (06:30)
[2018-04-12] MEDS ORDERED: VANCOMYCIN HCL INJ 1,000 MG VIAL IVPB ONE (06:30)
[2018-04-12 07:14] VITALS: BP 126/76
== END 2018-04-12 09:20 | disposition left against medical advice (07) ==
LOC: ER 05:07
DX: L02.511 Cutaneous abscess of right hand (principal); F31.9 Bipolar disorder, unspecified; Z53.29 Procedure and treatment not carried out because of patient's decision for other reasons; Z23 Encounter for immunization; Z85.43 Personal history of malignant neoplasm of ovary; Z87.891 Personal history of nicotine dependence; Z79.899 Other long term (current) drug therapy; Z88.8 Allergy status to other drugs, medicaments and biological substances
CPT/HCPCS: 36415; 73130; 80053; 80307; 81001; 81025; 83605; 85025; 87086; 90471; 90715; J1885; J3370; J7050

== ENCOUNTER 2019-02-02 12:32 | Emergency (ER) | payer MEDICAID, SELFPAY ==
[2019-02-02 14:27] VITALS: BP 131/77; TEMP 97.9; O2SAT 100
[2019-02-02] MEDS ORDERED: predniSONE 20 MG TAB PO ONE (14:41)
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
== END 2019-02-02 15:15 | disposition home or self-care (01) ==
LOC: ER 12:32
DX: O99.519 Diseases of the respiratory system complicating pregnancy, unspecified trimester (principal); J10.1 Influenza due to other identified influenza virus with other respiratory manifestations; Z3A.00 Weeks of gestation of pregnancy not specified; Z87.891 Personal history of nicotine dependence; Z85.43 Personal history of malignant neoplasm of ovary; Z79.899 Other long term (current) drug therapy; Z88.8 Allergy status to other drugs, medicaments and biological substances
CPT/HCPCS: 87502; 87880; J7512

== ENCOUNTER 2019-04-30 12:18 | Emergency (ER) | payer MEDICAID, OTHER ==
[2019-04-30] MEDS ORDERED: SODIUM CHLORIDE 0.9% (FLUSH) 10 ML SYG IV PRN (12:50)
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
--- NOTE | 2019-04-30 13:52 | CT ---
EXAM DESCRIPTION: Head CLINICAL HISTORY: seizure COMPARISON: None Available. Technique: Contiguous axial images of the brain were obtained without the administration of intravenous contrast. Coronal and sagittal reformats obtained and reviewed. This exam was performed according to our departmental dose-optimization program which includes use of Automated Exposure Control, adjustment of the mA and/or kV according to patient size and/or use of iterative reconstruction technique. Findings: Brain: No hemorrhage. No territorial infarct. No mass effect. No herniation. Ventricles: Within normal limits for patient's age. Bones: No acute osseous abnormality. Paranasal sinuses: Unremarkable. Mastoid air cells: Unremarkable. Soft tissues: No acute abnormality. IMPRESSION: No acute intracranial abnormalities. Electronically signed by: Gokul Lee DO 04/30/2019 1:51 PM CDT
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
[2019-04-30] MEDS ORDERED: POTASSIUM CHLORIDE 20 MEQ TAB PO ONE (14:14)
[2019-04-30] MEDS ORDERED: MORPHINE SULFATE INJ 10 MG/ML VIAL IV ONE (14:14)
[2019-04-30 14:57] VITALS: BP 98/76; TEMP 97; O2SAT 99
== END 2019-04-30 14:57 | disposition home or self-care (01) ==
LOC: ER 12:18
DX: G40.909 Epilepsy, unspecified, not intractable, without status epilepticus (principal); Z85.43 Personal history of malignant neoplasm of ovary; Z87.891 Personal history of nicotine dependence; Z79.899 Other long term (current) drug therapy; Z88.8 Allergy status to other drugs, medicaments and biological substances
CPT/HCPCS: 36415; 70450; 71045; 72125; 80053; 84703; 85025; 93005; J2060; J2270

== ENCOUNTER → 2019-06-30 | Outpatient (CLI) | payer OTHER ==
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
== END ==
LOC: MRI 08:57
PROVIDERS: ATTEND Emergency Medicine
DX: M75.101 Unspecified rotator cuff tear or rupture of right shoulder, not specified as traumatic (principal); R60.9 Edema, unspecified

== ENCOUNTER 2019-08-30 13:09 | Emergency (ER) | payer OTHER ==
[2019-08-30] MEDS ORDERED: SODIUM CHLORIDE 0.9% 1000ML 1,000 ML IVS PRN (13:31)
[2019-08-30] MEDS ORDERED: SODIUM CHLORIDE 0.9% (FLUSH) 10 ML SYG IV PRN (13:31)
[2019-08-30 13:32] VITALS: TEMP 97.3; O2SAT 97
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
[2019-08-30 16:05] VITALS: BP 117/73
== END 2019-08-30 16:05 | disposition home or self-care (01) ==
LOC: ER 13:09
DX: R51 Headache (principal); R41.0 Disorientation, unspecified; M54.2 Cervicalgia; R00.0 Tachycardia, unspecified; Z85.43 Personal history of malignant neoplasm of ovary; Z87.891 Personal history of nicotine dependence; Z79.899 Other long term (current) drug therapy; Z88.8 Allergy status to other drugs, medicaments and biological substances; V47.5XXA Car driver injured in collision with fixed or stationary object in traffic accident, initial encounter; Y92.410 Unspecified street and highway as the place of occurrence of the external cause
CPT/HCPCS: 36415; 70450; 71045; 72125; 72170; 80053; 80307; 80320; 81001; 84703; 85025; 93005; J7030